=== PATIENT | female | born 1985 | race African-American/Black ===

== ENCOUNTER 2018-06-15 09:25 | Observation (INO) ==
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
[2018-06-15 10:55] LABS: Mean Corpuscular Hemoglobin 17.2 pg (27.0-34.0); Mean Platelet Volume 8.4 fL (7.0-11.0); Platelet Count 825 th/mm3 (150-450); Red Blood Count 3.58 mil/mm3 (4.00-5.30); White Blood Count 10.3 th/mm3 (4.0-11.0)
[2018-06-15 10:59] LABS: Mean Corpuscular HGB Conc 28.7 % (32.0-36.0)
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
[2018-06-15 11:02] LABS: Hematocrit 21.5 % (35.0-46.0); Hemoglobin 6.2 gm/dL (11.6-15.3)
[2018-06-15 11:11] LABS: Albumin 3.6 g/dL (3.4-5.0); Anion Gap 9 meq/L (5-15); Aspartate Aminotransferase 13 U/L (15-37); Blood Urea Nitrogen 9 mg/dL (7-18); Calcium 8.8 mg/dL (8.5-10.1); Carbon Dioxide 23.9 meq/L (21.0-32.0); Chloride 108 meq/L (98-107); Glomerular Filtration Rate Greater Than 89 mL/min (>89); Glucose,Random 92 mg/dL (74-106); Potassium 3.4 meq/L (3.5-5.1); Sodium 141 meq/L (136-145)
[2018-06-15 11:12] LABS: Alanine Aminotransferase 14 U/L (10-53)
[2018-06-15 11:14] LABS: Alkaline Phosphatase 57 U/L (45-117); Total Protein 7.3 g/dL (6.4-8.2)
[2018-06-15 11:53] LABS: Lymphocytes 15 % (9-44); Monocytes 8 % (0-8); Ovalocytes 2+; Platelet Morphology Normal (Normal); Tear Drop Cells 1+
[2018-06-15] MEDS ORDERED: Sodium Chlor 0.9% Inj 250 ML IV.SIG SCH (12:00)
--- NOTE | 2018-06-15 12:06 | CT ---
EXAM DATE: 06/15/2018 11:30 AM EDT AGE/SEX: 32 years / Female INDICATIONS: Patient fell CLINICAL DATA: This is the patient's initial encounter. Patient reports that signs and symptoms have been present for 1 day and indicates a pain score of 6/10. MEDICAL/SURGICAL HISTORY: Hypertension. None. RADIATION DOSE: 49.14 CTDI (mGy) COMPARISON: No prior exams available for comparison. TECHNIQUE: CT of the head without contrast. Using automated exposure control and adjustment of the mA and/or kV according to patient size, radiation dose was kept as low as reasonably achievable to ob tain optimal diagnostic quality images. DICOM format image data is available electronically for revi ew and comparison. FINDINGS: Cerebrum: The ventricles are normal for age. No evidence of midline shift, mass lesion, hemorrhage or acute infarction. No extraaxial fluid collections are seen. Posterior Fossa: The cerebellum and brainstem are intact. The 4th ventricle is midline. The cerebe llopontine angle is unremarkable. Extracranial: The visualized portion of the orbits is intact. Skull: The calvaria is intact. No evidence of skull fracture. CONCLUSION: 1. No acute intracranial abnormality. . Electronically signed by: Caden Meléndez MD 06/15/2018 12:05 PM EDT
--- NOTE | 2018-06-15 12:15 | CT ---
EXAM DATE: 06/15/2018 11:30 AM EDT AGE/SEX: 32 years / Female INDICATIONS: Patient fell, left eye swelling CLINICAL DATA: This is the patient's initial encounter. Patient reports that signs and symptoms have been present for 1 day and indicates a pain score of 6/10. MEDICAL/SURGICAL HISTORY: None. None. RADIATION DOSE: 56.76 CTDI (mGy) COMPARISON: No prior exams available for comparison. TECHNIQUE: Contiguous images in the axial and coronal planes were obtained using helical multirow de tector technique. Using automated exposure control and adjustment of the mA and/or kV according to p atient size, radiation dose was kept as low as reasonably achievable to obtain optimal diagnostic cathy lity images. DICOM format image data is available electronically for review and comparison. FINDINGS: Orbits: The orbital and infraorbital osseous structures are intact. The retroconal structures have a normal configuration. No radiopaque foreign bodies are seen. Nasal Bone: The nasal bone and maxillary spine are intact. Zygomatic Arches: Symmetric without evidence of fracture. Sinuses: The ethmoid and frontal sinuses are intact. Mild mucosal thickening is noted within the ri ght maxillary sinus. No air-fluid levels seen. Nasal Cavity: Mild nasal septal deviation to the left is noted. The lacrimal ducts are intact. Soft Tissues: No radiopaque foreign bodies seen. No soft-tissue swelling is seen. Intracranial: No intracranial air seen. Cribriform Plate: Grossly intact. CONCLUSION: 1. No acute facial bone fracture. 2. Mild nasal septal deviation to the left. 3. Mild mucosal thickening involving the right maxillary sinus. Electronically signed by: Caden Meléndez MD 06/15/2018 12:14 PM EDT
[2018-06-15 12:19] LABS: Bacteria,Urine Many /hpf; Bilirubin,Urine Negative (Negative); Color,Urine Amber (Yellw/Straw); Glucose,Urine (UA) Negative (Negative); Leukocyte Esterase,Urine Moderate (Negative); Mucus,Urine Many /lpf (Occasional); Nitrite,Urine Positive (Negative); Specific Gravity,Urine 1.018 (1.002-1.035); Squamous Epithelial Cell,Urine 2 /hpf (0-5); Urobilinogen,Urine 4 or Greater mg/dL (Less than 2)
[2018-06-15 12:21] LABS: Clarity,Urine Hazy (Clear)
--- NOTE | 2018-06-15 12:28 | CT ---
EXAM DATE: 06/15/2018 11:30 AM EDT AGE/SEX: 32 years / Female INDICATIONS: Patient fell CLINICAL DATA: This is the patient's initial encounter. Patient reports that signs and symptoms have been present for 1 day and indicates a pain score of 6/10. MEDICAL/SURGICAL HISTORY: Hypertension. None. ORAL CONTRAST: No oral contrast ingested. RADIATION DOSE: 13.23 CTDI (mGy) COMPARISON: No prior exams available for comparison. TECHNIQUE: Multiple contiguous axial images were obtained through the abdomen and pelvis following b olus infusion of 80 ml Omnipaque 350 (iohexol) nonionic water-soluble contrast as a single exam dos e. No oral contrast ingested. Using automated exposure control and adjustment of the mA and/or kV ac cording to patient size, radiation dose was kept as low as reasonably achievable to obtain optimal di agnostic quality images. DICOM format image data is available electronically for review and comparis on. FINDINGS: Lower Lungs: The visualized lower lungs are clear. Liver: The liver has a homogeneous density without space-occupying lesion. There is no dilation of th e biliary tree. Gallbladder is unremarkable. Spleen: Homogeneous density without enlargement. Pancreas: Unremarkable without mass or calcification. Kidneys: Normal in size and shape. No evidence of mass or hydronephrosis. Adrenal Glands: Unremarkable. Aorta: The aorta and proximal iliac vessels are grossly unremarkable without aneurysmal dilation. Bowel/Mesentery: The bowel loops are grossly unremarkable. The cecum and sigmoid colon have a normal configuration. Abdominal Wall: Intact. Retroperitoneum: No evidence of adenopathy in the retrocrural, para-aortic, or deep pelvic regions. Bladder: Contours are smooth. Reproductive Organs: A 2.3 cm heterogeneously calcified nodule associated with the anterior uterine body consistent with a degenerating fibroid. A trace amount of free fluid within the cul-de-sac... Inguinal: The inguinal region is unremarkable without evidence of adenopathy. Bony Structures: Unremarkable. CONCLUSION: 1. No acute abnormality. 2. Degenerating fibroid. 3. Trace amount of free fluid within the cul-de-sac. Electronically signed by: Lucius Simmons MD 06/15/2018 12:26 PM EDT
[2018-06-15 12:29] LABS: Activated Partial Thrombo Time 23.9 sec (24.3-30.1); INR 1.1 Ratio; Prothrombin Time 10.9 sec (9.8-11.6)
[2018-06-15] MEDS ORDERED: Acetaminophen 325 MG Tablet PO ONE (13:14)
[2018-06-15] MEDS ORDERED: Nitrofurantoin Monohydrate-Macrocrystal 100 MG Capsule PO ONE (13:14)
[2018-06-15] MEDS ORDERED: Acetaminophen 325 MG Tablet PO PRN (13:43)
[2018-06-15] MEDS ORDERED: Bisacodyl 10 MG Supp RECTAL PRN (13:43)
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
[2018-06-15 16:52] LABS: % Iron Saturation 2.8 % (20-50)
[2018-06-16 03:14] LABS: Hematocrit 25.9 % (35.0-46.0); Hemoglobin 8.1 gm/dL (11.6-15.3); Mean Corpuscular HGB Conc 31.2 % (32.0-36.0); Mean Corpuscular Hemoglobin 19.9 pg (27.0-34.0); Mean Corpuscular Volume 63.9 fL (80.0-100.0); Mean Platelet Volume 8.3 fL (7.0-11.0); Platelet Count 776 th/mm3 (150-450); Red Blood Count 4.06 mil/mm3 (4.00-5.30); Red Cell Distribution Width 32.9 % (11.6-17.2); White Blood Count 6.7 th/mm3 (4.0-11.0)
[2018-06-16 04:41] LABS: Acanthocytes Occ; Eosinophils 3 % (0-4); Lymphocytes 50 % (9-44); Monocytes 1 % (0-8); Ovalocytes 1+; Platelet Morphology Normal (Normal)
[2018-06-16 08:05] VITALS: O2SAT 99
[2018-06-16] MEDS ORDERED: Ferrous Sulfate 325 MG Tablet PO SCH (09:00)
[2018-06-16 09:07] LABS: Hematocrit 25.6 % (35.0-46.0); Hemoglobin 8.1 gm/dL (11.6-15.3); Mean Corpuscular HGB Conc 31.8 % (32.0-36.0); Mean Corpuscular Hemoglobin 20.3 pg (27.0-34.0); Mean Platelet Volume 8.5 fL (7.0-11.0); Platelet Count 752 th/mm3 (150-450); Red Blood Count 3.99 mil/mm3 (4.00-5.30); Red Cell Distribution Width 32.5 % (11.6-17.2); White Blood Count 6.2 th/mm3 (4.0-11.0)
[2018-06-16 09:48] LABS: Eosinophils 2 % (0-4); Lymphocytes 43 % (9-44); Monocytes 6 % (0-8)
[2018-06-16 09:49] LABS: Spherocytes 1+
[2018-06-16 09:50] LABS: Ovalocytes 1+; Platelet Morphology Normal (Normal); Target Cells 1+
[2018-06-16 12:30] VITALS: BP 106/90; PULSE 63; RESP 16; TEMP 97.6
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
== END 2018-06-16 15:17 | disposition home or self-care (01) ==
LOC: NEPD 09:25 → NEDA 09:25 → NEPFCDU 14:40
PROVIDERS: ADMIT Hospitalist; ATTEND Hospitalist